=== PATIENT | female | born 1960 | race Caucasian/White ===

== ENCOUNTER → 2021-02-06 | Outpatient (CLI) | payer OTHER ==
[~2021-02-06] MED LIST: ACYCLOVIR 400400 MG PO; AMOXICILLIN 50500 MG PO; CARAFATE1 GM PO; CYMBALTA60 MG PO; GLUCOPHAGE1000 MG PO; LEVO-T25 MCG PO; NEXIUM40 MG PO; TRIAMTERENE/HCT1 CA1 PO; VASOTEC10 MG PO; ZETIA10 MG PO
[2021-02-06 11:03] LABS: ABSOLUTE EOSINOPHILS 0.7 thou/uL (0.0-0.7); ABSOLUTE LYMPHOCYTES 2.4 thou/uL (0.8-5.3); ABSOLUTE MONOCYTES 0.4 thou/uL (0.0-1.2); ABSOLUTE NEUTROPHILS 4.7 thou/uL (1.6-8.1); BASOPHILS 0.5 %; EOSINOPHILS 8.3 %; HEMATOCRIT 34.1 % (37.0-47.0); HEMOGLOBIN 11.1 gm/dL (12.0-15.0); LYMPHOCYTES 28.7 %; MCHC 32.7 g/dL (28.0-37.0); MCV 91.8 fL (80.0-100.0); MONOCYTES 5.2 %; MPV 7.5 fl. (7.2-11.1); NUCLEATED RBCS 0 /100WBC; PLATELET COUNT* 376 thou/uL (150-400); POLYS 57.3 %; RBC 3.71 mil/uL (4.20-5.00); RDW-CV 15.3 % (10.5-14.5); WBC 8.3 thou/uL (4.0-11.0)
[2021-02-06 11:16] LABS: APTT 27.3 Seconds (25.0-31.3); INR 0.9; PROTIME 10.1 Seconds (9.20-11.50)
[2021-02-06 11:21] LABS: ALBUMIN 3.1 g/dL (3.4-5.0); CALCIUM 8.9 mg/dL (8.5-10.1); CREATININE 0.9 mg/dL (0.6-1.3); POTASSIUM 3.6 mmol/L (3.5-5.1); TOTAL BILIRUBIN 0.1 mg/dL (<0.1-1.0); TOTAL PROTEIN 6.7 g/dL (6.4-8.2)
[2021-02-06 12:18] LABS: ESR (SEDRATE) 30 mm/hr (0-30)
--- NOTE | 2021-02-06 17:49 | EKG ---
[place] [address] ELECTROCARDIOGRAM REPORT Name: MILO SWENSON Room: [facility]#: [id number] Admission: 02/06/21 Attend Phys: Fidencio Moctezuma DO Discharge: Date of : 64 Date of Service: 02/06/21 1038 Report #: [id number] THIS REPORT FOR: //name// [facility] Test Date: 2021-02-06 Test Time: 10:38:02 Pat Name: MILO SWENSON Department: Room: Gender: Educational Consultant: : 1960 Requested By: Fidencio Moctezuma Order Number: [id number] Wendy MD: Alon Silva Measurements Intervals Hoskins Rate: 93 P: 75 SC: 129 QRS: 49 QRSD: 95 T: 16 QT: 377 QTc: 469 Interpretive Statements Sinus rhythm Inferior Q waves noted No previous ECG available for comparison Electronically Signed On 02-06-2021 17:48:47 [employer] by Alon Silva [email or web address] <ELECTRONICALLY SIGNED> By: Alon Silva MD, [facility] 02/06/21 1748 1038 1038 Alon Silva MD, FACC /EPI
[2021-02-07 02:06] LABS: GLYCOHEMOGLOBIN (HGB A1C) 6.6 % (4.8-5.6)
== END ==
LOC: M.LAB 08:50
PROVIDERS: ATTEND Orthopaedic Surgery
DX: Z01.812 Encounter for preprocedural laboratory examination (principal); Z20.822 Contact with and (suspected) exposure to COVID-19; I49.9 Cardiac arrhythmia, unspecified

== ENCOUNTER 2021-02-12 07:35 | Observation (INO) | payer OTHER ==
[~2021-02-12] VITALS: Ht 165.1 cm; Wt 70.3 kg
--- NOTE | ~2021-02-12 | OP ---
[address] [address] OPERATIVE REPORT Name: MILO SWENSON Room: [address] [place]#: [id number] Admission: 02/12/21 Attend Phys: Warren Mccormick Discharge: Date of : 64 Report #: [id number] THIS REPORT FOR: cc: FAM - Family physician unknown FAM - Family physician unknown ~ Fidencio Moctezuma DO DICTATED BY: Fidencio Moctezuma DO, DATE OF SERVICE: 02/12/2021 PREOPERATIVE DIAGNOSIS: Advanced degenerative joint disease, right hip. POSTOPERATIVE DIAGNOSIS: Advanced degenerative joint disease, right hip. PROCEDURE PERFORMED: Right total hip arthroplasty utilizing the [employer] Taperloc system following components: 1. Size 54 mm G7 acetabular shell. 2. A 40 mm high wall liner. 3. Size 5 Taperloc complete standard offset femoral stem. 4. A 40 mm ceramic head -6 neck adapter. 5. A 6.5 x 25 mm bone screws. SURGEON: Fidencio Moctezuma DO. SECOND PITCH FLAKER: Chuck Adair DO and Alexys Alexandra DO. ANESTHESIA: General. ESTIMATED BLOOD LOSS: 500 mL. SPECIMENS: None. COMPLICATIONS: None. DISPOSITION CONDITION OF PATIENT: Stable to PACU. ANTIBIOTICS: 2 grams IV Ancef. PREOPERATIVE INDICATIONS: The patient is a 60-year-old female, we follow up in clinic regarding right hip pain. She had advanced DJD on x-ray. She failed conservative measures. Pain has been bothering on a daily basis interfering with ADLs. Therefore, recommendation for total hip arthroplasty. DESCRIPTION OF PROCEDURE: The patient was seen in the preoperative area, consent was obtained. The operative site was marked. The patient was brought [facility] [address] [place] [address] OPERATIVE REPORT Name: MILO SWENSON Stefanie Room: [address] [place]#: [id number] Admission: 02/12/21 Attend Phys: Warren Mccormick Discharge: Date of : 64 Report #: [id number] back to the operative suite, given benefit of general anesthetic. She was placed on a well-padded Hart table. Both legs were well-padded, subsequently placed in the boot and into the spar. Right lower extremity was then prepped and draped in normal sterile fashion. A surgical timeout was performed to confirm correct side, site, and procedure. All present were in agreement. Procedure began with standard ASI incision approximately 2 cm distal and lateral to the ASIS. Sharp dissection through skin. We bovied down through the subcutaneous fat. I identified the fascial layer, made shikha incision through this. The remainder of the visualized fascia was released in line with the incision utilizing scissors. We identified the appropriate interval between the sartorius and tensor. We identified and cauterized the branch of the circumflex utilizing the Aquamantys. We then placed our retractors appropriately around the proximal femur. We prepped and then performed a typical anterior capsulectomy. We made our neck cut approximately 1 cm proximal to the lesser trochanter. Napkin ring cut was subsequently made and the bone was removed. We placed retractors around the acetabulum. The remaining anterior capsule as well as labral tissue was removed. We then sequentially reamed up to a size 53. We opened and impacted a size 54 acetabular shell with the appropriate inclination and version, which was judged on C-arm as well as external referencing. We then drilled and inserted two 25-mm bone screws to posterior superior quadrant. The high wall liner was placed in the anterior superior position. We then turned our attention to the femur. It was maximal externally rotated We released inferiorly down to the lesser trochanter. We excised any remaining capsule. We extended and adducted the leg to get appropriate visualization of the proximal femur. We prepped the canal with a box osteotome followed by the rat tail rasp and sequentially broached up to a size 5. A trial reduction was performed, taken through range of motion and stable. X-rays confirmed the appropriate size of the stem as well as the leg lengths. We then dislocated the hip, extended and adducted again, removed trial components. Wound was thoroughly irrigated. We then opened and impacted the size 5 Taperloc complete stem, standard offset in similar position. We therefore opened and impacted the 40 mm head with -6 neck adapter. Hip was reduced. Stable in all planes. Final fluoroscopic image was obtained and saved to the PACS system. Wound was thoroughly irrigated. The fascial layer was closed with #1 running Stratafix. Subcutaneous tissue was closed with 2-0 Monocryl in a simple interrupted fashion. Skin was reapproximated with a running 3-0 Stratafix and sterile skin glue. Mepilex was placed. The patient was awoken from anesthesia and transferred to PACU in stable condition. There were no complications. Needle and sponge counts correct x 2. Dr. Moctezuma was present for all critical aspects of the case. By: [id number] Rojelio Moctezuma, /nt
[2021-02-12 11:00] VITALS: BP 144/100
[2021-02-13 04:00] VITALS: BP 104/56
[2021-02-13 04:31] LABS: HEMATOCRIT 25.3 % (37.0-47.0); HEMOGLOBIN 8.1 gm/dL (12.0-15.0)
[2021-02-13 07:20] VITALS: BP 112/63
[2021-02-13] MEDS ORDERED: ELIQUIS5 MG PO (12:24)
[2021-02-13] MEDS ORDERED: NORCO 10-325 T1 EACH PO (12:25)
[2021-02-13 12:38] VITALS: BP 112/63
[2021-02-13 16:33] VITALS: BP 105/53
== END 2021-02-13 16:53 | disposition home or self-care (01) ==
LOC: M.PRE → M.TBA 10:46 → EDSTATUS 10:57 → M.PRE 11:00 → M.SUR 12:23 → M.PRE 13:50 → M.ORTHSURG 18:49
PROVIDERS: Orthopaedic Surgery; ADMIT Internal Medicine; ATTEND Internal Medicine
DX: M16.11 Unilateral primary osteoarthritis, right hip (principal); E03.9 Hypothyroidism, unspecified; K21.9 Gastro-esophageal reflux disease without esophagitis; E11.9 Type 2 diabetes mellitus without complications; D50.9 Iron deficiency anemia, unspecified; Z79.84 Long term (current) use of oral hypoglycemic drugs; Z79.899 Other long term (current) drug therapy